=== PATIENT | male | born 1965 | race Caucasian/White ===

== ENCOUNTER 2025-05-26 13:47 | Emergency (ER) | payer BC, SELFPAY ==
[2025-05-26 13:52] VITALS: BP 150/73; PULSE 109; RESP 18; TEMP 36.3; O2SAT 99; BMI 34.6
--- NOTE | 2025-05-26 14:02 | ED_ITS ---
HPI - Allergic Reaction General Chief complaint: Allergic Reaction Stated complaint: allergic reaction to meds Time Seen by Provider: 05/26/25 13:56 Source: patient and other (Friend at bedside) Mode of arrival: ambulatory Limitations: no limitations History of Present Illness ED Provider: NEMO Ramsey HPI narrative: 59-year-old male with medical history of HTN, depression, anxiety, HLD, T2DM, presents to the ED due to swelling of his lips. Patient states he took his daily medications and ate lemon cookie which is not a new food item in his diet and then noticed itching and swelling of his lips 30 minutes later. Repots taking 2 benadryl tablets around noon and then went to urgent care when swelling was not improving who told him to come to ED for care. Patient states only change of his routine has been an increase in lisinopril 2 months ago to 15mg, and states he has experienced chronic dry cough with the medication. Denies swelling, itching/tingling to mouth, tongue, throat, difficulty breathing, SOB, abdominal pain, nausea, vomiting Related Data Allergies Allergy/AdvReac Type Severity Reaction Status Date / Time No Known Allergies Allergy Verified 05/26/25 13:53 Review of Systems 2 Review of Systems: CONST: Negative for fever, body aches and chills. HENT: Negative for neck pain/stiffness, headache, congestion, sore throat, swelling. POS itching and swelling of lips EYES: Negative for discharge/pain or vision changes. RESP: Negative for cough/hemoptysis and shortness of breath. CV: Negative chest pain, difficulty breathing, palpitations. ABD: Negative pain, nausea, vomiting. : Negative increase frequency, dysuria, blood in urine or stool. MUSC: Negative for muscle aches, edema. SKIN: Negative rash, lesions/sores. NEURO: Negative headache, dizziness, weakness. Yes all other systems are reviewed and are negative PMFSH Past Medical History Attestation statement: The following information was validated with the patient. Source: old records reviewed and nursing notes reviewed Social History Social History Smoked in Last 30 Days: No Use of substances other than those prescribed or required for medical reasons: No Advance Directives: No Advance Directives Information Provided: Yes Do you have a plan to hurt others: No Plan Physical Exam ED Vital Signs: Vital Signs - 24 hr 05/26/25 13:52 05/26/25 14:12 05/26/25 17:14 Temperature 97.4 F 98.1 F Pulse Rate 109 H 114 H 91 Respiratory Rate 18 22 H 20 Blood Pressure 150/73 H 129/87 135/98 H Pulse Oximetry 99 99 96 Oxygen Delivery Method Room Air Room Air Room Air BMI result Body Mass Index 34.6 GENERAL APPEARANCE: ?AxOx4, no acute distress. HEENT: ?NC, AT. MMM. EOMI, clear conjunctiva, oropharynx clear, uvula without edema, midline, no tonsilar edema, no sublingual edema, no submental edema. Moderate edema of the lips, Patient is speaking in full clear sentences, tolerating oral secretions NECK: ?Supple without lymphadenopathy.? No stiffness or restricted ROM. HEART:? Normal rate and regular rhythm, normal S1/S2, no m/r/g LUNGS:? CTAB, moving air well. No crackles or wheezes are heard, no increased work of breathing, no pursed lip breathing, no accessory muscle use noted ABDOMEN: ?Soft, nontender, nondistended EXTREMITIES: ?Without cyanosis, clubbing or edema. NEUROLOGICAL: ?Grossly nonfocal. Alert and oriented, moving all 4 extremities. Observed to ambulate with normal gait. Skin: ?Warm and dry without any rash. Medications Administered Discontinued Medications Generic Name Dose Route Start Last Admin Trade Name Aaronq PRN Reason Stop Dose Admin Diphenhydramine HCl 50 mg 05/26/25 13:59 05/26/25 14:07 Diphenhydramine Hcl 50 Mg/Ml Vial IVPUSH 05/26/25 14:00 50 mg ONCE ONE Administration Famotidine 20 mg 05/26/25 13:59 05/26/25 14:07 Famotidine/Pf 20 Mg/2 Ml Vial IVPUSH 05/26/25 14:00 20 mg ONCE ONE Administration Lactated Ringer's 1,000 mls @ 999 mls/hr 05/26/25 15:08 05/26/25 18:00 Lr IV 05/26/25 16:08 Infused .Q1H1M ONE Infusion Methylprednisolone Sodium Succinate 60 mg 05/26/25 13:59 05/26/25 14:08 Methylprednisolone Sod Succ 125 Mg/2 Ml Vial IVPUSH 05/26/25 14:00 60 mg ONCE ONE Administration Medical Decision Making Medical Decision Making MDM Narrative: 59-year-old male with medical history of HTN, depression, anxiety, HLD, T2DM, presents to the ED due to swelling of his lips 30 minutes after taking his daily medication and eating a lemon cookie for breakfast which is his normal routine. Patient reports only change in his routine has been an increase in his lisinopril 2 months ago to 15 mg. Patient states he has had a dry cough with this medication. Denies difficulty breathing, shortness of breath, increased work of breathing, itching of the tongue/mouth/throat, chest tightness. Labs without leukocytosis/leukopenia, H&H stable, no electrolyte abnormality. Patient was medicated with 50 mg IV Benadryl, 20 mg IV famotidine, 60 mg methylprednisolone for management of allergic reaction. Will be monitored in the ED for next 2 hours to ensure resolution of symptoms Patient has been monitored for a total of 4 hours in the department. Symptoms have resolved considerably. Patient was counseled on strict return precautions. I counseled patient to follow up with his primary care doctor. Patient isn't in agreement with the plan. Photo after medication: Differential Diagnosis Differential Diagnoses: The differential diagnosis associated with the presentation includes Anaphylaxis Urticaria Allergic reaction Medication side effect Admission/Observation Consideration of admission/observation: Escalation of care including admission/observation considered Lab Data [facility] Lab Attestation statement: I reviewed the patient's lab results. 05/26/25 14:59 05/26/25 14:59 Labs: Lab Results 05/26/25 Range/Units 14:59 WBC 6.2 (4.8-10.8) X10*3/uL RBC 5.20 (4.60-5.80) X10*6/uL Hgb 16.0 (14.0-18.0) g/dl Hct 44.9 (42.0-52.0) % MCV 86.3 (80.0-98.0) fL MCH 30.8 (27.0-33.0) pg MCHC 35.6 (31.0-36.0) g/dl RDW 12.9 (11.0-16.0) % Plt Count 273 (160-400) X10*3/uL MPV 8.0 L (9.4-12.4) fL Immature Gran % (Auto) 0.2 (0.0-0.4) % Neut % (Auto) 46.8 (45-73) % Lymph % (Auto) 33.3 (20-40) % [place] % (Auto) 11.4 H (2-11) % Eos % (Auto) 7.8 H (0-4) % Baso % (Auto) 0.5 (0-2) % Lymph # (Auto) 2.1 (1.2-4.9) X10*3/uL [place] # (Auto) 0.7 (0.1-1.2) X10*3/uL Eos # (Auto) 0.5 H (0.0-0.4) X10*3/uL Baso # (Auto) 0.0 (0.0-0.2) X10*3/uL Abs Immat Gran (auto) 0.01 (0.00-0.03) X10*3/uL Absolute Neuts (auto) 2.9 (2.0-8.3) x10*3/uL Absolute Nucleated RBC 0.000 (0.0-0.012) X10*3/uL Nucleated RBC % (auto) 0.0 (0.0-0.2) /100WBC Sodium 135 (135-145) mmol/L Potassium 4.4 (3.3-5.1) mmol/L Chloride 103 (96-108) mmol/L Carbon Dioxide 24 (22-29) mmol/L Anion Gap 12 (12-20) BUN 17 H (9-16) mg/dL Creatinine 1.33 (0.5-1.4) mg/dL Estim Creat Clear Calc 61.7 Estimated GFR 55 Random Glucose 114 (60-115) mg/dL Calcium 10.0 (8.4-10.2) mg/dL Magnesium 2.1 (1.6-2.6) mg/dL Total Bilirubin 0.5 (0.0-1.0) mg/dL AST 22 (5-37) U/L ALT 29 (0-40) U/L Alkaline Phosphatase 57 (39-117) U/L Total Protein 7.4 (6.5-8.0) g/dL Albumin 4.7 (3.5-5.0) g/dL Independent Historian Clinical information obtained from an independent historian. History obtained from or confirmed by: Friend (Friend at bedside corroborating history) External Record Review External record reviewed: Inpatient record, Office record and Outpatient record Prescription Management I considered prescription management with: Other (Epinephrine) I considered epinephrine however patient without airway involvement, chest tightness, difficult breathing or accessory muscle use. Lip swelling has decreased since being medicated with Benadryl, famotidine, Solu-Medrol. Chronic Conditions Patient?s care impacted by: Diabetes, Hypertension and Other (HLD, depression, anxiety) Discharge Plan Discharge Clinical Impression: Allergic reaction Patient Disposition: Home, Self-Care Additional Instructions: You were evaluated in the ED today due to itching and swelling of your lips. Your blood work today was normal. Your physical exam was reassuring that you did not have any airway involvement during your allergic reaction today. You were medicated with 50 mg IV Benadryl, 20 mg IV Pepcid( antacid that is also an antihistimine) 60 mg of Solu-Medrol (a sterioid to aid in keeping airway open) with good effect on your swelling. I suspect that your reaction today is due to your lisinopril. Please stop taking this medication at this time. You need to follow up with your primary care doctor to discuss this episode of allergic reaction and decide if they would like to keep you on lisinopril or change this medication to something else to manage your hypertension. Please return to the emergency department if you experience swelling or itching of your lips/tongue/mouth/throat, nausea, abdominal pain, vomiting, difficulty breathing, tightness in your chest, or any new/worsening/concerning symptom. Print Language: Faroese
[2025-05-26 14:12] VITALS: BP 129/87; PULSE 114; RESP 22; TEMP 36.7; O2SAT 99
--- NOTE | 2025-05-26 14:14 | PC.NURSE ---
59 M presents to ED with lip swelling that started at 9:30 am after eating a lemon cookier at 0900. Pt denies any pain or discomfort, no SOB or CP. RR even and unlabored. Swelling noted to lips, more on the left than right but airway is clear. Pt is A+OX4, a little anxious, cooperative. Pt ambulates independently.
--- OUTSIDE RECORDS SUMMARY | 2025-05-26 14:45 | XMS_ITS | Continuity of Care Document ---
Author Organization [facility] Address [address] [place] [address] Insurance Providers Payer Plan Claims Address Claims Phone Policy Number Group Number Relation Employer Guarantor Name Guarantor Guarantor Address Guarantor Phone [facility] [address], [place] [address] tel:[phone] Self Poncho Daniel [address] [place] [id number] [facility] [address], [place] [address] [id number] Self Poncho Daniel [address] [place] [id number] Problems Condition ICD9 code ICD10 code SNOMED code Start Date End Date S tatus Encounter for screening for other metabolic disorders Z13.228 Results No Results Allergies, adverse reactions, alerts No known allergies and adverse reactions Medications No administered medications reported Vital Signs No vital signs reported Social History No smoking Hx information available
--- OUTSIDE RECORDS SUMMARY | 2025-05-26 14:45 | XMS_ITS ---
Author Name [facility] Organization Unknown Care Team Organization Name Specialty Phone Email Start Date End Da te [facility] 07/14/2022 04/24/2024
--- OUTSIDE RECORDS SUMMARY | 2025-05-26 14:45 | XMS_ITS | Continuity of Care Document ---
Author Organization [facility] Address [id number] [place] [address] Insurance Providers Payer Plan Claims Address Claims Phone Policy Number Group Number Relation Employer Guarantor Name Guarantor Guarantor Address Guarantor Phone [facility] [address], [place] [address] tel:[phone] Self Poncho Daniel [address] [place] [id number] [facility] [address], [place] [address] [id number] Self Poncho Daniel [address] [place] [id number] Problems Condition ICD9 code ICD10 code SNOMED code Start Date End Date S tatus Encounter for screening for other metabolic disorders Z13.228 Results No Results Allergies, adverse reactions, alerts No known allergies and adverse reactions Medications No administered medications reported Vital Signs No vital signs reported Social History No smoking Hx information available
--- OUTSIDE RECORDS SUMMARY | 2025-05-26 14:45 | XMS_ITS | Clinical Summary ---
Author Organization [address] Address [address] [place] [phone] Phone Care Team Providers Care Suspension Cord Tier Name Role Phone Juany Maddox MD Primary Care Provider [phone] Allergies Active Allergy Reactions Criticality Noted Date Comments House Dust Itching 11/05/2017 Pollen Extracts 11/05/2017 Medications ARIPiprazole (ABILIFY) 2 mg tablet Take 1 mg by mouth daily. Active blood-glucose meter kit Use to check bllod sugar once daily 01/10/2024 Active buPROPion XL (WELLBUTRIN XL) 300 mg 24 hr tablet Take 1 tablet (300 mg total) by mouth 1 (one) time each day. 08/16/2021 Active clonazePAM (KlonoPIN) 0.5 mg tablet Take 0.5 mg by mouth daily. Active miconazole nitrate 2 % aerosol,spray 06/21/2023 Activ e lancets lancets Use to check blood sugar once daily 09/16/2021 Active OneTouch Ultra Test test strip Use to test blood sugar once daily 12/28/2022 Active Descovy 200-25 mg per tablet Take 1 tablet by mouth 1 (one) time each day. 11/09/2024 Active lisinopriL (PRINIVIL,ZESTR IL) 10 mg tablet Take 1 tablet (10 mg total) by mouth at bedtime. at bedtime. 90 tablet 3 12/25/2024 Active rosuvastatin (CRESTOR) 20 mg tablet Take 1 tablet (20 mg total) by mouth 1 (one) time each day. 90 tablet 3 12/25/2024 Active metFORMIN XR (GLUCOPHAGE-XR) 500 mg 24 hr tablet Take 2 Tables in the AM with meals and 2 tablets in the PM (Do not crush, chew, or split) 360 tablet 1 03/26/2025 Active lisinopriL (PRINIVIL,ZESTR IL) 5 mg tablet Take 1 tablet (5 mg total) by mouth 1 (one) time each day. 30 tablet 3 03/26/2025 Active Active Problems Problem Noted Date Diagnosed Date Hypertension 06/06/2024 Presbyopia 12/05/2021 Type 2 diabetes mellitus, wi thout long-term current use of insulin ([facility] V24, [facility] V28) 09/08/2021 Obesity 04/09/2010 Pure hypercholesterolemia 04/09/2010 Depression 09/10/2008 Encounters Date Type Department Care Team Description 03/26/2025 4:15 PM EDT Office Visit Adult Medicine [address] [phone] Juany Maddox MD Class 2 severe obesity with serious comorbidity in adult, unspecified BMI, unspecified obesity type ([facility] V24, [facility] V28) (Primary Dx); Type 2 diabetes mellitus with other specified complication, without long-term current use of insulin ([facility] V24, [facility] V28); Primary hypertension; Pure hypercholesterolemia; Stage 3 chronic kidney disease, unspecified whether stage 3a or 3b CKD ([facility] V24, [facility] V28); Depression, unspecified depression type from Last 3 Months Immunizations Name Administration Dates Next Due DTaP (Infanrix) 6wks to less than 7yo 09/10/2008 Hepatitis B ([id number]-Gnmkd , Recombivax HB-Adult) 19yo and older 06/14/2018,01/12/2018,12/13/2017 Influenza Quadravalent, MDCK , 0.5ml, preservative free (Flucelvax) 6mo and older 05/15/2023,05/30/2022,06/17/2019,05/25 Influenza trivalent, with pr eservative (Fluzone; Afluria) 6mo and older 06/17/2021,05/21/2020,06/22/2017,05/18,11/01/2015,06/12/2014,07/04/2013 ,05/26/2010 Moderna (age 6mo & older) Bi valent, COVID-19, 0.5 mL or 0.25 mL dosage 05/30/2022 Pneumococcal conjugate 13 va lent (Prevnar 13, PCV13) 2mo and older 04/09/2010 Pneumococcal polysaccharide 23 valent (Pneumovax 23) 2yo and older 04/09/2010 Pneumococcal, Unspecified 04/09/2010 Td Tetanus diptheria (Tdvax) 7yo and older 09/03/2021 Tdap Tetanus diptheria acell ular pertussis (Boostrix; Adacel) 7yo and older 09/03/2021,09/10/2008 Zoster recombinant (Shingrix ) 19yo and older 06/29/2020,10/06/2019 Surgical History Surgery Date Site/Laterality Comments UMBILICAL HERNIA REPAIR PROCEDURE: LAP UMBILICAL HERNIA REPAIR; COMMENT: at age 4 Medical History Medical History Date Comments Depression 09/10/2008 DX:Depression Pure hypercholesterolemia 04/09/2010 DX:Pur e hypercholesterolemia Hyperglycemia 04/09/2010 DX:Hyperglycemia Obesity 04/09/2010 DX:Obesity Need for prophylaxis against sexually transmitted diseases 03/21/2019 DX:Need for prophylaxis agai nst sexually transmitted diseases Family History Medical History Relation Name Comments Diabetes Father Other: polycythemia Father Stroke Father at age 61 Other: uterine Ca Maternal Grandmother Diabetes Mother Hypertension Sister Relation Name Status Comments Father Maternal Grandmother Mother Sister Alive Social History Tobacco Use Types Packs/Day Years Used Date Smoking Tobacco: Former Cigarettes Smokeless Tobacco: Never Alcohol Use Standard Drinks/Week Comments Yes 1.7 (1 standard drink = 0.6 oz p ure alcohol) Housing Instability Answer Date Recorde d Are you worried that in the next 2 months you may not have stable housing? No 12/24/2024 Food Access & Nutrition Answer Date Rec orded Do you have access to a vari ety of food including fruits and vegetables? Yes 12/24/2024 Access to Healthcare Answer Date Record ed Within the last 3 months, ho w many times did you visit the emergency department for your medical care? 0 12/24/2024 Health Literacy Answer Date Recorded How often do you need to hav e someone help you when you read instructions, pamphlets, or other written material from your doctor or pharmacy? Never 12/24/2024 Caregiver: How often do you need to have someone help you when you read instructions, pamphlets, or other written material from your doctor or pharmacy? Not on file 12/24/2024 Financial Risk Answer Date Recorded How hard is it for you to pa y for the very basics like food, housing, medical care, and air conditioning / heating? Not very hard 12/24/2024 Transportation Answer Date Recorded Has the lack of transportati on kept you from meetings, work, or from getting things needed for daily living? No Has the lack of transportati on kept you from medical appointments or from getting medications? No 12/24/2024 Social Isolation Answer Date Recorded How often do you feel lonely or isolated from th ose around you? Often 12/24/2024 Food Risk Answer Date Recorded Within the past 12 months we worried whether our food would run out before we got money to buy more. Never true 12/24/2024 Within the past 12 months th e food we bought just didn't last and we didn't have money to get more. Never true 12/24/2024 Dependent Care Answer Date Recorded Do you need help finding or paying for care for your loved ones. For example, child protective services social worker or elderly care for an older adult? No 12/24/2024 Education Answer Date Recorded Do you think completing more education or training, like finishing a GED, going to college, or learning a trade, would be helpful for you? Patient declined 12/24/2024 Employment and Income Answer Date Recor ded During the last four weeks, have you been actively looking for work? No 12/24/2024 Living Situation Answer Date Recorded What is your living situation? 0 12/24/2024 Sex and Gender Information Value Date Recorded Sex Assigned at Not on file Legal Sex Male 3:01 PM EST Gender Identity Not on file Sexual Orientation Not on file Obstetrics History Last Filed Vital Signs Vital Sign Reading Time Taken Comments Blood Pressure 138/86 03/26/2025 4:02 PM EDT Pulse 78 03/26/2025 4:02 PM EDT Temperature 35.9 C (96.6 F) 03/26/2025 4:02 PM EDT Respiratory Rate 16 03/26/2025 4:02 PM EDT Oxygen Saturation 98% 12/25/2024 2:58 PM EDT Inhaled Oxygen Concentration - - Weight 94.8 kg (209 lb) 03/26/2025 4:02 PM EDT Height 162.6 cm (5' 4 ) 03/26/2025 4:02 PM EDT Body Mass Index 35.87 03/26/2025 4:02 PM EDT Plan of Treatment Upcoming Encounters Date Type Department Care Team (Late st Contact Info) Description 07/03/2025 11:15 AM EDT Office Visit Adult Medicine [facility] [address] [place] [phone] Juany Maddox MD [address] [place] [address] Health Maintenance Due Date Last Done Comments Pneumococcal Vaccine: 50+ Years (3 of 3 - PCV20 or PCV21) 2016 04/09/2010, 04/09/2010, 04/09/2010 Diabetes: Annual Retina Eye Exam 09/15/2024 09/15/2023 Influenza Vaccine (#1) 2025 , 05/15/2023, 05/30/2022, Additional history exists Diabetes: Blood Sugar Control Test (HGBA1C) 06/22/2025 12/21/2024, 07/12/2024, 01/10/2024, Additional history exists Social Influencers of Health Screening 12/24/2025 12/24/2024 Diabetes: Annual Urine Albumin-Creatinine Ratio (uACR) 01/25/2026 01/25/2025, 12/21/2024, 09/16/2023 Diabetes: Annual GFR (Glomerular Filtration Rate) 01/25/2026 01/25/2025, 12/21/2024, 01/10/2024, Additional history exists Hypertension/CHF/CAD Annual BMP Blood Test 01/25/2026 01/25/2025, 12/21/2024, 01/10/2024, Additional history exists Diabetes: Annual Foot Exam 03/26/2026 03/26/2025, Cholesterol Screening (Lipid Panel) 12/21/2029 12/21/2024, 06/07/2023 DTaP,Tdap,and Td Vaccines (5 - Td or Tdap) 09/03/2031 09/03/2021, 09/03/2021, 09/10/2008, Additional history exists Colorectal Cancer Screening: Colonoscopy 12/27/2031 12/26/2021 Hepatitis B Vaccines Completed 06/14/2018, 01/12/2018, 12/13/2017 Hepatitis C Screening Completed 11/15/2018 HIV Screening Completed 03/28/2019 Zoster Vaccines Completed 06/29/2020, 10/06/2019 COVID-19 Vaccine Completed 05/06/2024, 03/2023, 05/30/2022, Additional history exists Depression Screening Completed 12/24/2024 HIB Vaccines Aged Out No longer eligi ble based on patient's age to complete this topic HPV Vaccines Aged Out No longer eligi ble based on patient's age to complete this topic Hepatitis A Vaccines Aged Out No long er eligible based on patient's age to complete this topic IPV Vaccines Aged Out No longer eligi ble based on patient's age to complete this topic MMR Vaccines Aged Out No longer eligi ble based on patient's age to complete this topic Meningococcal ACWY Vaccine Aged Out N o longer eligible based on patient's age to complete this topic Meningococcal B Vaccine Aged Out No l onger eligible based on patient's age to complete this topic RSV Immunization Patients Under 20 months Aged Out No longer eligible based on patient's age to complete this topic Varicella Vaccines Aged Out No longer eligible based on patient's age to complete this topic Procedures Procedure Name Priority Date/Time Associated Diagnosis Comments MICROALBUMIN CREATININE URINE RATIO Routine 01/25/2025 4:39 PM EDT Hyponatremia BASIC METABOLIC PANEL Routine 01/25/2025 4:39 PM EDT Hyponatremia HEMOGLOBIN A1C Routine 12/21/2024 4:04 PM EDT Newly diagnosed diabetes (CMS/HCC V24, CMS/HCC V28) LIPID PANEL WITH REFLEX TO DIRECT LDL Routine 12/21/2024 4:04 PM EDT Pure hypercholesterolemia DIABETES FOOT EXAM Routine 09/29/2023 DIABETES EYE EXAM Routine 09/15/2023 COLONOSCOPY Routine 12/26/2021 HIV SCREENING Routine 03/28/2019 HEPATITIS C SCREENING Routine 11/15/2018 from Last 3 Months or Most Recently Relevant to Health Maintenance Results * Microalbumin creatinine urine ratio (01/25/2025 4:39 PM EDT) Creatinine, Urine 40.0 mg/dL LAB CHEMISTRY METHOD 01/26/2025 4:29 AM EDT [facility] Microalb, Ur <5.0 0.0 - 29.0 mg/L LAB CHEMISTRY METHOD 01/26/2025 4:29 AM EDT [facility] Microalb/Creat Ratio <13 <30 mg/g creat LAB CHEMISTRY METHOD 01/26/2025 4:29 AM EDT [facility] Urine Urine specimen obtained by clean catch procedure / Unknown Non-blood Collection / Unknown 01/25/2025 4:39 PM EDT 01/25/2025 4:39 PM EDT us [facility] LAB URINE ORDERABLES Fin al Result [facility] [address] [place] [address], * (ABNORMAL) Basic metabolic panel (01/25/2025 4:39 PM EDT) Sodium 133 133 - 145 mmol/L LAB CHEMISTRY METHOD 01/26/2025 2:47 AM EDT [facility] Potassium 4.2 3.5 - 5.5 mmol/L LAB CHEMISTRY METHOD 01/26/2025 2:47 AM [facility] Chloride 99 96 - 110 mmol/L LAB CHEMISTRY METHOD 01/26/2025 2:47 AM [facility] CO2 22 21 - 32 mmol/L LAB CHEMISTRY METHOD 01/26/2025 2:47 AM [facility] Anion Gap 12(H) 3 - 11 LAB CHEMISTRY METHOD 01/26/2025 2:47 AM [facility] Glucose 91 70 - 100 mg/dL LAB CHEMISTRY METHOD 01/26/2025 2:47 AM [facility] BUN 15 5 - 25 mg/dL LAB CHEMISTRY METHOD 01/26/2025 2:47 AM [facility] Creatinine 1.43(H) 0.70 - 1.30 mg/dL LAB CHEMISTRY METHOD 01/26/2025 2:47 AM [facility] eGFR 57(L) >=60 mL/min/1. 73m2 LAB CHEMISTRY METHOD 01/26/2025 2:47 AM [facility] Comment:Calculation based on the Chronic Kidney Disease Epidemiology Collaboration (CKD-EPI) equation refit without adjustment for race. BUN/Creatinine Ratio 10.5 LAB CHEMISTRY METHOD 01/26/2025 2:47 AM [facility] Calcium 9.5 8.5 - 10.5 mg/dL LAB CHEMISTRY METHOD 01/26/2025 2:47 AM [facility] Blood Venous blood specimen / Unknown Venipuncture / Unknown 01/25/2025 4:39 PM EDT 01/25/2025 4:39 PM EDT us [facility] LAB BLOOD ORDERABLES Fin al Result [facility] [address] [place] [address], * (ABNORMAL) Lipid panel with reflex to direct LDL (12/21/2024 4:04 PM EDT) Cholesterol 119 0 - 200 mg/dL LAB CHEMISTRY METHOD 12/21/2024 6:38 PM EDT [facility] Triglycerides 158(H) 0 - 150 mg/dL LAB CHEMISTRY METHOD 12/21/2024 6:38 PM EDT [facility] HDL 40 >=40 mg/dL LAB CHEMISTRY METHOD 12/21/2024 6:38 PM EDT [facility] LDL Calculated 47 0 - 100 mg/dL LAB CHEMISTRY METHOD 12/21/2024 6:38 PM EDT [facility] VLDL Cholesterol Nghia 31.6 mg/dL LAB CHEMISTRY METHOD 12/21/2024 6:38 PM EDT [facility] Non HDL Chol. (LDL+VLDL) 79 <145 mg/dL LAB CHEMISTRY METHOD 12/21/2024 6:38 PM EDT [facility] Chol/HDL Ratio 3.0 0.0 - 4.4 LAB CHEMISTRY METHOD 12/21/2024 6:38 PM EDT [facility] Blood Venous blood specimen / Unknown Venipuncture / Unknown 12/21/2024 4:04 PM EDT 12/21/2024 4:04 PM EDT us Juany Maddox MD LAB BLOOD ORDERABLES Final Resul t [facility] [address] [place] [address], * (ABNORMAL) Hemoglobin A1c (12/21/2024 4:04 PM EDT) Hemoglobin A1C 7.3(H) <6.5 % LAB CHEMISTRY METHOD 12/21/2024 9:39 PM EDT [facility] Mean Bld Glu Estim. 163 mg/dL LAB CHEMISTRY METHOD 12/21/2024 9:39 PM EDT [facility] Blood Venous blood specimen / Unknown Venipuncture / Unknown 12/21/2024 4:04 PM EDT 12/21/2024 4:04 PM EDT Juany Maddox MD LAB BLOOD ORDERABLES Final Resul t [facility] [address] [place] [address], * Diabetes Foot Exam (09/29/2023) [facility] Diabetes: Annual Foot Exam abstracted Historical Provider HEALTH MAINTENANCE Final Result * Diabetes Eye Exam (09/15/2023) [facility] Diabetes: Annual Retina Eye Exam abstracted Result [facility] Historical Provider HEALTH MAINTENANCE Final Result * Colonoscopy (12/26/2021) [facility] Colonoscopy no interpreta tion,abstr acted Anatomical Region Laterality Modality Other Historical Provider HEALTH MAINTENANCE Final Result * HIV Screening (03/28/2019) [facility] HIV Screening abstracted Result [facility] Historical Provider HEALTH MAINTENANCE Final Result * Hepatitis C Screening (11/15/2018) [facility] Hepatitis C Screening abstracted Result [facility] Historical Provider HEALTH MAINTENANCE Final Result from Last 3 Months or Most Recently Relevant to Health Maintenance Insurance [facility] Care Teams Suspension Cord Tier Relationship Specialty Start Date End Date Juany Maddox MD [address] [place] [address] PCP - General Internal Medicine 06/01/03
--- NOTE | 2025-05-26 14:53 | PC.NURSE ---
Checked in on pt, pt is calm, cooperative. RR even and unlabored, denies any CP or SOB. Swelling to lips seems to have decreased from arrival.
[2025-05-26 15:04] LABS: MANUAL DIFF FLAG NO
[2025-05-26 15:08] LABS: Hematocrit 44.9 % (42.0-52.0); Hemoglobin 16.0 g/dl (14.0-18.0); Imm Gran Abs Auto 0.01 X10*3/uL (0.00-0.03); Imm Gran Pct Auto 0.2 % (0.0-0.4); Lymphocytes Absolute Auto 2.1 X10*3/uL (1.2-4.9); Mean Corpuscular HGB Conc 35.6 g/dl (31.0-36.0); Mean Corpuscular Hemoglobin 30.8 pg (27.0-33.0); Mean Corpuscular Volume 86.3 fL (80.0-98.0); NRBC Abs Auto 0.000 X10*3/uL (0.0-0.012); NRBC Pct Auto 0.0 /100WBC (0.0-0.2); Platelet Count 273 X10*3/uL (160-400); Red Blood Count 5.20 X10*6/uL (4.60-5.80); White Blood Count 6.2 X10*3/uL (4.8-10.8)
[2025-05-26 15:17] LABS: Alanine Aminotransferase 29 U/L (0-40); Albumin Level 4.7 g/dL (3.5-5.0); Alkaline Phosphatase 57 U/L (39-117); Anion Gap 12 (12-20); Aspartate Amino Transferase 22 U/L (5-37); Blood Urea Nitrogen 17 mg/dL (9-16); Calcium 10.0 mg/dL (8.4-10.2); Carbon Dioxide 24 mmol/L (22-29); Chloride 103 mmol/L (96-108); Creatinine Clr Calc Pharmacy 61.7; Estimated Glomerular Filt Rate 55; Magnesium 2.1 mg/dL (1.6-2.6); Potassium 4.4 mmol/L (3.3-5.1); Sodium 135 mmol/L (135-145); Total Protein 7.4 g/dL (6.5-8.0)
[2025-05-26] MEDS: Lactated Ringers 1,000 ML 999 ML IV (16:25)
[2025-05-26 17:14] VITALS: BP 135/98; PULSE 91; RESP 20; O2SAT 96
[2025-05-26 19:17] VITALS: BP 110/82; PULSE 105; RESP 12; TEMP -17.7; TEMP 0; O2SAT 97
== END 2025-05-26 19:18 | disposition home or self-care (01) ==
PROVIDERS: Emergency Provider Emergency Medicine; PCP Internal Medicine
DX: T78.1XXA Other adverse food reactions, not elsewhere classified, initial encounter (principal); X58.XXXA Exposure to other specified factors, initial encounter; Y99.9 Unspecified external cause status; K13.0 Diseases of lips; I10 Essential (primary) hypertension; E11.9 Type 2 diabetes mellitus without complications
CPT/HCPCS: 36415; 80053; 83735; 85025; 96361; 96374; 96375; 99284; J1200; J1308; J2919; J7120